=== PATIENT | male | born 1980 | race Two or more races ===

== ENCOUNTER 2025-04-03 11:00 | Inpatient (IN) | payer OTHER ==
[~2025-04-03] VITALS: Ht 167.6 cm; Wt 79.4 kg
[2025-04-03 14:18] VITALS: BP 127/81
[2025-04-11] MEDS ORDERED: METRONIDAZOLE/SODIUM CHLORIDE 500 MG/100 ML PIGGYBACK IV ONE ×2 (06:58→11:38)
[2025-04-11] MEDS ORDERED: CEFTRIAXONE SODIUM 2,000 MG VIAL ONE (06:58)
[2025-04-11] MEDS ORDERED: BUPIVACAINE HCL/Mpf 0.5% 10ML VIAL ONE (07:18)
[2025-04-11] MEDS ORDERED: LIDOCAINE HCL 1%/EPINEPHRINE 20ML VIAL IJ ONE (07:19)
[2025-04-11] MEDS ORDERED: FAMOTIDINE/PF 20 MG/2 ML VIAL IV PUSH SCH (09:18)
[2025-04-11] MEDS ORDERED: LACTOBACILLUS ACIDOPHILUS 1 CAP CAP PO SCH (09:19)
[2025-04-11] MEDS ORDERED: TAMSULOSIN HCL 0.4 MG CAP PO SCH (09:19)
[2025-04-11] MEDS ORDERED: CIPROFLOXACIN IN 5 % DEXTROSE 400 MG/200 ML PIGGYBAG IV SCH (09:21)
[2025-04-11] MEDS ORDERED: METRONIDAZOLE/SODIUM CHLORIDE 500 MG/100 ML PIGGYBACK IV SCH (09:22)
[2025-04-11] MEDS ORDERED: RINGERS SOLUTION,LACTATED 1,000 ML IV SCH (09:30)
[2025-04-11] MEDS ORDERED: OxyCODONE HCL 5 MG TABLET (ROXICODONE) PO PRN (09:30)
[2025-04-11] MEDS ORDERED: ONDANSETRON HCL 2 MG/ML VIAL IV PRN (09:30)
[2025-04-11] MEDS ORDERED: MORPHINE SULFATE 4 MG/ML CARTRIDGE IV PRN (09:30)
[2025-04-11] MEDS ORDERED: MORPHINE SULFATE 4 MG/ML VIAL IV ONE ×2 (10:30→11:55)
[2025-04-11] MEDS ORDERED: CIPROFLOXACIN IN 5 % DEXTROSE 400 MG/200 ML PIGGYBAG IV ONE (11:37)
[2025-04-11] MEDS ORDERED: FAMOTIDINE/PF 20 MG/2 ML VIAL ONE (11:38)
[2025-04-11] MEDS ORDERED: ACETAMINOPHEN 500 MG GEL..CAP PO SCH (12:00)
[2025-04-11] MEDS ORDERED: HYOSCYAMINE SULFATE 0.125 MG TAB.SUBL SL SCH (13:00)
[2025-04-11 16:35] VITALS: BP 112/70; O2SAT 95
[2025-04-11] MEDS ORDERED: GABAPENTIN 300 MG CAPSULE PO SCH (17:00)
[2025-04-12 01:01] VITALS: BP 104/64; O2SAT 95
[2025-04-12 08:00] LABS: ALBUMIN 3.2 gm/dL (3.4-5.0); CALCIUM 8.2 mg/dL (8.5-10.1); CREATININE SERUM 0.82 mg/dL (0.70-1.30); GFR 101.6; POTASSIUM 4.07 mEq/L (3.5-5.1)
[2025-04-12 08:10] LABS: BASO % 0.4 % (0.1-1.2); HEMATOCRIT 31.6 % (40.1-51.0); HEMOGLOBIN 13.1 g/dL (13.7-17.5); MONO # 1.41 (0.24-0.82); MONO % 8.3 % (4.7-12.5); NEUT # 13.75 (1.56-6.13); NEUT % 80.8 % (34.0-71.1); PLATELET COUNT 269 K/uL (163-369); RED BLOOD COUNT 3.54 M/uL (4.63-6.08); RED CELL DISTRIBUTION WIDTH 13.3 % (11.6-14.4)
[2025-04-12 08:29] VITALS: BP 109/70; O2SAT 96
[2025-04-12 15:00] VITALS: BP 112/73; O2SAT 95
[2025-04-12] MEDS ORDERED: CYCLOBENZAPRINE HCL 5 MG TABLET PO NR (15:00)
[2025-04-12] MEDS ORDERED: ENOXAPARIN SODIUM 40 MG/0.4 ML SYRINGE SUBCUTANEO SCH (17:00)
[2025-04-12] MEDS ORDERED: CYCLOBENZAPRINE HCL 5 MG TABLET PO SCH (21:00)
[2025-04-13 00:49] VITALS: BP 120/68; O2SAT 95
[2025-04-13 08:07] VITALS: BP 136/86; O2SAT 95
[2025-04-13 08:13] LABS: CALCIUM 8.9 mg/dL (8.5-10.1); CREATININE SERUM 0.88 mg/dL (0.70-1.30); GFR 93.65; MAGNESIUM 2.3 mg/dL (1.8-2.4); PHOSPHOROUS 2.2 mg/dL (2.5-4.9); POTASSIUM 4.3 mEq/L (3.5-5.1)
[2025-04-13 08:46] LABS: BASO % 0.5 % (0.1-1.2); EOS # 0.03 (0.04-0.54); EOS % 0.2 % (0.7-7.0); HEMATOCRIT 33.1 % (40.1-51.0); HEMOGLOBIN 13.7 g/dL (13.7-17.5); LYMPH # 1.48 (1.18-3.74); LYMPH % 11.1 % (19.3-53.1); MEAN CORPUSCULAR HEMOGLOBIN 36.8 pg (25.6-32.2); MONO # 0.88 (0.24-0.82); MONO % 6.6 % (4.7-12.5); NEUT # 10.82 (1.56-6.13); PLATELET COUNT 284 K/uL (163-369); RED BLOOD COUNT 3.72 M/uL (4.63-6.08); RED CELL DISTRIBUTION WIDTH 13.7 % (11.6-14.4)
[2025-04-13] MEDS ORDERED: ENOXAPARIN SODIUM 40 MG/0.4 ML SYRINGE SUBCUTANEO SCH (09:00)
[2025-04-13] MEDS ORDERED: POTASSIUM PHOS,M-BASIC-D-BASIC 3 MM/ML VIAL IV ONE (12:00)
[2025-04-13 16:19] VITALS: BP 134/83; O2SAT 94
[2025-04-14 01:10] VITALS: BP 119/71; O2SAT 95
[2025-04-14 09:03] VITALS: BP 134/86; O2SAT 97
[2025-04-14 16:00] VITALS: BP 117/78; O2SAT 96
[2025-04-15 00:35] VITALS: BP 105/69; O2SAT 98
[2025-04-15 08:00] VITALS: BP 121/79; O2SAT 96
[2025-04-15] MEDS ORDERED: NEURONTIN300 MG PO (11:07)
[2025-04-15] MEDS ORDERED: TYLENOL ARTHRI650 MG PO (11:07)
== END 2025-04-15 14:48 | disposition home or self-care (01) | DRG 330 ==
LOC: O/R 04-11 05:00 → SURH 04-11 05:00 → SURG 04-11 07:00 → SURH 04-11 11:52
PROVIDERS: Internal Medicine Geriatric Medicine; ADMIT Surgery; ATTEND Surgery
PROC: 07BB4ZZ Excision of Mesenteric Lymphatic, Percutaneous Endoscopic Approach (ICD-10-PCS; 2025-04-11)
PROC: 07BC4ZZ Excision of Pelvis Lymphatic, Percutaneous Endoscopic Approach (ICD-10-PCS; 2025-04-11)
PROC: 0DNW4ZZ Release Peritoneum, Percutaneous Endoscopic Approach (ICD-10-PCS; 2025-04-11)
PROC: 0DTF4ZZ Resection of Right Large Intestine, Percutaneous Endoscopic Approach (ICD-10-PCS; principal; 2025-04-11 07:00)
DX: D12.2 Benign neoplasm of ascending colon (principal); K62.5 Hemorrhage of anus and rectum; E88.2 Lipomatosis, not elsewhere classified; R59.0 Localized enlarged lymph nodes; K66.0 Peritoneal adhesions (postprocedural) (postinfection); K64.8 Other hemorrhoids; K64.5 Perianal venous thrombosis; D72.828 Other elevated white blood cell count; E83.39 Other disorders of phosphorus metabolism; R19.4 Change in bowel habit; J44.9 Chronic obstructive pulmonary disease, unspecified; F17.200 Nicotine dependence, unspecified, uncomplicated